=== PATIENT | female | born 1995 | race Caucasian/White ===

== ENCOUNTER 2024-01-26 00:53 | Outpatient (CLI) | payer BC, OTHER | END 2024-01-26 23:59 | disposition EMS.NT | LOC: EMS 00:53 | DX: M54.9 Dorsalgia, unspecified (principal) ==

== ENCOUNTER 2024-01-26 01:40 | Emergency (ER) | payer BC, OTHER ==
--- NOTE | 2024-01-26 01:58 | ED Physician Documentation ---
PD HPI ABD PAIN - Stated complaint Stated Complaint: BACK PAIN X 2 DAYS - Chief complaint Chief Complaint: Back Pain - History obtained from History obtained from: Patient, EMS - History of Present Illness Timing - onset: How many days ago (2-3) Timing - duration: Days (2-3), Weeks (has noted some intermittent right flank pain over past few weeks, but none consistent and thught it maybe muscular. Same area became severe the past few days and more consistent.) Timing - details: Gradual onset, Still present (has gotten even worse the past 6-8 hours.), Waxing and waning Quality: Sharp, Stabbing, Pain Location: Other (right flank mainly with some to right side abd.) Radiation: Right flank Improved by: Laying still. No: Eating Worsened by: Moving, Palpation. No: Eating, Breathing Associated symptoms: Nausea, Vomiting. No: Fever (but has felt warm at times with worst pain), Dysuria, Near syncope / syncope, Loss of appetite Similar symptoms before: Has not had sx before Review of Systems Constitutional: denies: Fever, Myalgias GI: denies: Abdominal Pain, Nausea, Vomiting, Constipation : denies: Dysuria Skin: denies: Rash Musculoskeletal: reports: Back pain PD PAST MEDICAL HISTORY - Past Medical History Past Medical History: No - Past Surgical History Past Surgical History: No - Present Medications Home Medications: Ambulatory Orders Medication Instructions Recorded Confirmed HYDROcod/ACETAM 5/325 [[place] 5/325] 1 ea PO Q6H PRN #20 tablet 01/26/24 Lidocaine Patch 5% [Lidoderm Patch] 1 patch TOP DAILY PRN #10 patch 01/26/24 Meloxicam [Mobic] 7.5 mg PO BID 10 Days #20 tablet 01/26/24 Ondansetron Odt [Zofran] 4 mg TL Q6H PRN #10 tablet 01/26/24 methocarbamoL [Robaxin] 500 mg PO Q6H PRN #30 tablet 01/26/24 - Allergies Allergies/Adverse Reactions: Allergies Allergy/AdvReac Type Severity Reaction Status Date / Time No Known Drug Allergies Allergy Verified 01/26/24 01:49 - Social History Does the pt smoke?: No Smoking Status: Never smoker Does the pt drink ETOH?: No PD ED PE NORMAL - Vitals Vital signs reviewed: Yes - General General: Well developed/nourished, Other (appears very uncomfortable with pain right flank.) - Cardiac Cardiac: RRR - Respiratory Respiratory: No respiratory distress - Abdomen Abdomen: Soft, Non tender - Back Back: No spinal TTP, Other (tender in muscular right flank area. No redness, rash nor sores. ) - Derm Derm: Normal color, Warm and dry, No rash - Neuro Neuro: Alert and oriented X 3, Normal speech Results - Vitals Vitals: Vital Signs - 24 hr 01/26/24 01/26/24 01:45 06:26 Temperature 36.9 C Heart Rate 91 66 Respiratory 18 16 Rate Blood Pressure 165/108 H 127/83 H O2 Saturation 99 98 Oxygen O2 Source Room air - Labs Labs: Laboratory Tests 01/26/24 01/26/24 01/26/24 02:16 02:16 02:18 WBC 12.9 H RBC 4.21 Hgb 12.7 Hct 37.6 MCV 89.3 MCH 30.2 MCHC 33.8 RDW 12.0 Plt Count 365 MPV 11.8 H Neut # (Auto) 8.0 H Lymph # (Auto) 3.4 [place] # (Auto) 1.2 H Eos # (Auto) 0.2 Baso # (Auto) 0.1 Absolute Nucleated RBC 0.00 Nucleated RBC % 0.0 Sodium 139 Potassium 3.7 Chloride 107 Carbon Dioxide 22 Anion Gap 10.0 BUN 11 Creatinine 0.6 Estimated GFR (MDRD) 120 Glucose 116 H Calcium 9.6 Total Bilirubin 0.5 AST 27 ALT 48 Alkaline Phosphatase 44 Total Protein 7.7 Albumin 4.4 Globulin 3.3 Albumin/Globulin Ratio 1.3 Lipase 13 Urine Color YELLOW Urine Clarity CLEAR Urine pH 6.0 Ur Specific [place] >=1.030 H Urine Protein NEGATIVE Urine Glucose (UA) NEGATIVE Urine Ketones NEGATIVE Urine Occult Blood NEGATIVE Urine Nitrite NEGATIVE Urine Bilirubin NEGATIVE Urine Urobilinogen 0.2 (NORMAL) Ur Leukocyte Esterase NEGATIVE Ur Microscopic Review NOT INDICATED Urine Culture Comments NOT INDICATED Urine HCG, Qual NEGATIVE - Rads (name of study) abd/pelvic CT Relevant Findings:: Prelim report reviewed (normal appendix. No kidney stones nor kidney swelling. No other acute process. Small physiologic cysts on ovaries. ), EMP independent interpretation of test (no acute process. ) PD Medical Decision Making - ED course Complexity details: reviewed results (no identified cause on CT and labs. Normal lipase, UA, HCG. CT not showing abnormality. WBC nonspecific mild elevation 12K. Pain cuases thus would be more likely muscular. No rash/redness, so not appearing shingles, abscess, etc. ), re-evaluated patient (pain improved with Toradol, zofran, and Dilaudid. ), considered differential, d/w patient Departure - Departure Disposition: 01 Home, Self Care Clinical Impression: Acute right flank pain Condition: Stable Record reviewed to determine appropriate education?: Yes Instructions: ED Spasm Back No Trauma, ED Flank Pain Uncertain Cause Prescriptions: Lidocaine Patch 5% [Lidoderm Patch] 1 patch TOP DAILY PRN #10 patch PRN Reason: pain Meloxicam [Mobic] 7.5 mg PO BID 10 Days #20 tablet HYDROcod/ACETAM 5/325 [[place] 5/325] 1 ea PO Q6H PRN #20 tablet PRN Reason: Pain methocarbamoL [Robaxin] 500 mg PO Q6H PRN #30 tablet PRN Reason: Spasms Ondansetron Odt [Zofran] 4 mg TL Q6H PRN #10 tablet PRN Reason: Nausea / Vomiting Comments: Your CT scan did not identify a structural cause for the pain. In particular no signs of kidney swelling or kidney stones. No soft tissue abscesses or masses. Pancreas liver and gallbladder appeared okay without any acute process. Your appendix is normal. No other intestinal or intra-abdominal cause identified. Your urine test did not show any signs of infection. Simple of blood tests for pancreas liver are normal. Obviously you are still hurting a lot in that area. Abnormalities that would not show on the labs, urine, CT scan can include nerve type pain, muscular such as spasms and inflammation, intestinal such as constipation or such but you are not really having belly pain. At this point I go added as muscular pain with a combination of anti- inflammatory, muscle relaxant and topical lidocaine patches to the area. To that add Zofran/ondansetron if needed for nausea and Tylenol 500 to 650 mg every 4-6 hours regularly for the next few days. To that add hydrocodone/acetaminophen if needed for worse pains. We did send some home with you this evening since pharmacies are not open right now. Take 1-2 every 4-6 hours if needed. Follow-up with your primary care regarding further treatment such as physical therapy. You could also try massage or chiropractic. Follow-up if not improved over the next few days to week. I sent your prescriptions to [facility] pharmacy. I am prescribing a short course of narcotic pain medication for you. These are potentially dangerous and addictive medications that should be used carefully. These medications may constipate you. Take an [id number] stool softener such as docusate twice daily with plenty of water while taking these medications. If you go 24 hours without a bowel movement, take [id number] MiraLAX, per package instructions. Do not drink or drive while taking these medications. If you received narcotic or sedating medications while in the emergency department do not drive for 24 hours. Store this medication in a safe, secure place and out of reach of children. It is a violation of federal law to give or sell this medication to another person or to use in a manner other than prescribed. The ED will not refill narcotic prescriptions, including prescriptions lost or stolen. You can dispose of unwanted medications at the [facility]'s office or at several pharmacies such as [facility]. Discharge Date/Time: 01/26/24 06:28
[2024-01-26] MEDS ORDERED: iohexoL-300 100 ML VIAL ONE (02:09)
[2024-01-26] MEDS: HYDROmorphone 1 MG/ML CARPUJECT IVP STA (02:18)
[2024-01-26] MEDS: ONDANSETRON 4 MG/2 ML VIAL IVP STA (02:18)
[2024-01-26] MEDS: KETOROLAC 15 MG/ML VIAL IVP STA (02:18)
[2024-01-26] MEDS: SODIUM CHLORIDE 0.9% 1,000 ML IV STA (02:19)
[2024-01-26 02:20] LABS: BASOPHILS # (AUTO) 0.1 10^3/uL (0.0-0.1); BASOPHILS % (AUTO) 0.5 %; EOSINOPHILS # (AUTO) 0.2 10^3/uL (0.0-0.7); EOSINOPHILS % (AUTO) 1.7 %; HCT - HEMATOCRIT 37.6 % (37.0-47.0); HGB - HEMOGLOBIN 12.7 g/dL (12.0-16.0); LYMPHOCYTES # (AUTO) 3.4 10^3/uL (1.5-3.5); MEAN CORPUSCULAR HEMOGLOBIN 30.2 pg (27.0-31.0); MEAN CORPUSCULAR HGB CONC 33.8 g/dL (32.0-36.0); MEAN CORPUSCULAR VOLUME 89.3 fL (81.0-99.0); MEAN PLATELET VOLUME 11.8 fL (7.9-10.8); MONOCYTES # (AUTO) 1.2 10^3/uL (0.0-1.0); MONOCYTES % (AUTO) 9.1 %; NEUTROPHILS % (AUTO) 61.8 %; PLT - PLATELET COUNT 365 10^3/uL (130-450); RED BLOOD COUNT 4.21 10^6/uL (4.20-5.40); WHITE BLOOD COUNT 12.9 x10^3/uL (4.8-10.8)
[2024-01-26 02:40] LABS: BILIRUBIN,URINE NEGATIVE (NEGATIVE); GLUCOSE, URINE (UA) NEGATIVE (NEGATIVE); KETONES,URINE (UA) NEGATIVE (NEGATIVE); LEUKOCYTE ESTERASE, URINE NEGATIVE (NEGATIVE); NITRITE,URINE NEGATIVE (NEGATIVE); OCCULT BLOOD,URINE NEGATIVE (NEGATIVE); PROTEIN,URINE NEGATIVE (NEGATIVE); UROBILINOGEN,URINE 0.2 (NORMAL) E.U./dL (NORMAL)
[2024-01-26 02:42] LABS: ALBUMIN 4.4 g/dL (3.2-5.5); ALBUMIN/GLOBULIN RATIO 1.3 (1.0-2.2); BILIRUBIN,TOTAL 0.5 mg/dL (0.2-1.0); CALCIUM 9.6 mg/dL (8.5-10.3); CREATININE 0.6 mg/dL (0.6-1.3); POTASSIUM 3.7 mmol/L (3.5-4.5); TOTAL PROTEIN 7.7 g/dL (6.4-8.9)
[2024-01-26 02:49] LABS: CLARITY,URINE CLEAR (CLEAR); HCG UR QUAL NEGATIVE
[2024-01-26] MEDS: iohexoL-300 100 ML VIAL IVP ONE (03:18)
[2024-01-26] MEDS ORDERED: PROMETHAZINE 25 MG/1 ML VIAL ONE (05:50)
[2024-01-26] MEDS: PROMETHAZINE INJ 12.5 MG in SODIUM CHLORIDE 0.9% 50 ML IV STA (05:52)
[2024-01-26] MEDS: HYDROcod/ACET 5/325 Prepack 4 PO STA (06:14)
[2024-01-26 06:35] VITALS: BP 127/83; O2SAT 98
--- NOTE | 2024-01-26 09:15 | CT Report ---
PROCEDURE: Abdomen/Pelvis W INDICATIONS: right flank to abd pain few days. CONTRAST: 100 ML OMNI 300 TECHNIQUE: After the administration of intravenous contrast, a CT scan of the abdomen and pelvis was performed. Images were recorded and evaluated at appropriate window settings. Reformats: coronal and sagittal. F or radiation dose reduction, the following was used: automated exposure control, adjustment of mA and /or kV according to patient size. COMPARISON: None. FINDINGS: Image quality: Diagnostic. Lower chest: Unremarkable. Liver: No solid mass. The liver is enlarged and demonstrates diffuse fatty infiltration. Gallbladder: Within normal limits. Biliary tree: No intrahepatic or extrahepatic dilation, accounting for age. Spleen: No splenomegaly. Pancreas: No pancreatic ductal dilation. Adrenals: No adrenal nodule. Kidneys and ureters: No hydronephrosis. No renal cystic lesion which requires follow up. No solid mas s. Stomach, bowel and peritoneum: No gastric or small bowel dilation. No abnormal wall thickening. No pa thologic free fluid. A normal appendix is seen. Lymph nodes: No central or retroperitoneal adenopathy. Vessels: No infrarenal aortic aneurysm. Patent portal vein. PELVIS Reproductive organs: The uterus demonstrates an unremarkable appearance for age. Cystic changes are s een in the right ovary, which are considered to be within physiologic limits. No adnexal masses are s een. Bladder: No abnormal wall thickening, accounting for underdistention. Pelvic lymph nodes: No pelvic adenopathy by size criteria. Bones: No aggressive osseous abnormality. There is mild to moderate dextroconvex lumbar scoliosis. Mild disc space narrowing is seen at L5-S1. Other: No significant ventral or inguinal hernia. IMPRESSION: Negative for hydronephrosis. Normal appendix. Cystic changes are seen of the right ovary, which are regarded to be within physiologic limits. Additional findings: Enlarged, fatty infiltrated liver Mild to moderate dextroconvex scoliosis Focal L5-S1 degenerative change Note: No significant discrepancy from the preliminary report. Reviewed by: Abel Roth MD on 01/26/2024 8:14 AM KAIDEN Approved by: Abel Roth MD on 01/26/2024 8:14 AM KAIDEN Station ID: [id number]
== END 2024-01-26 06:28 | disposition home or self-care (01) ==
LOC: ED 01:40
DX: R10.9 Unspecified abdominal pain (principal)
CPT/HCPCS: 36415; 74177; 80053; 81003; 81025; 83690; 85025; 96361; 96365; 96375; 99284; J1170; J7040; Q9967; 81001; 87086